=== PATIENT | female | born 1950 | race African-American/Black ===

== ENCOUNTER → 2016-11-01 | Outpatient (CLI) | payer MEDICARE ==
[~2016-11-01] MED LIST: ASPIR 8181 M1 PO; CLARITIN-D 121 EACH PO; CLONAZEPAM0.5 MG; CLONAZEPAM0.5 MG PO; COUMADIN2.5 MG; DICLOFENAC SODI75 MG; DULCOLAX5 MG PO; GABAPENTIN PO; GABAPENTIN300 MG PO; GABAPENTIN400 MG PO; GABAPENTIN600 MG PO; GLUCOTROL5 MG PO; HUMALOG100 UNIT/1; HUMULIN N100 UNIT/2 SC; HUMULIN N100 UNITS/ SC; HUMULIN R100 UNITS/ SC; KADIAN10 MG PO; LIPITOR20 MG; LISINOPRIL20 MG PO; METFORMIN HCL1000 M1; METFORMIN HCL1000 MG PO; MORPHINE SULFAT15 M1 PO; MORPHINE SULFAT20 M1 PO; NEURONTIN300 MG PO; NEURONTIN400 MG PO; NICOTINE PATCH1 EAC2 TD; OXYCODONE HCL10 MG PO; OXYCODONE HCL15 MG PO; PAXIL20 MG PO; PAXIL40 MG PO; PERCOCET 10/1 TABLE1 PO; PRINIVIL20 MG PO; RANITIDINE HCL300 MG PO; STRESS FORMULA1 EAC9 PO; UNSURE OF MEDS; VALIUM10 MG PO; VALIUM5 MG PO; VOLTAREN75 MG PO; ZANTAC300 MG; ZANTAC75 M1; ZESTRIL20 MG PO; ZOCOR40 MG PO; ZOCOR80 MG PO; [UNRECOGNIZED DRUG - REMARK] PO
== END | disposition home or self-care (01) ==
LOC: CDC 11:25
DX: Z01.810 Encounter for preprocedural cardiovascular examination (principal); R94.31 Abnormal electrocardiogram [ECG] [EKG]; M48.06 Spinal stenosis, lumbar region; M19.90 Unspecified osteoarthritis, unspecified site; J44.9 Chronic obstructive pulmonary disease, unspecified; E11.9 Type 2 diabetes mellitus without complications; I10 Essential (primary) hypertension; M79.7 Fibromyalgia; F32.9 Major depressive disorder, single episode, unspecified; Z88.0 Allergy status to penicillin; Z88.1 Allergy status to other antibiotic agents
CPT/HCPCS: 93000

== ENCOUNTER 2016-11-06 10:23 | Day surgery (SDC) | payer OTHER ==
[~2016-11-06] VITALS: Ht 165.1 cm; Wt 68.0 kg
[2016-11-06 11:20] VITALS: BP 178/84
[2016-11-06 12:05] LABS: POINT-OF-CARE METER ID UU14174212
[2016-11-06 15:52] LABS: POINT-OF-CARE METER ID UU13113675
[2016-11-06 18:23] VITALS: BP 189/84
[2016-11-06 19:27] VITALS: BP 180/78
[2016-11-06 23:38] VITALS: BP 192/84
[2016-11-07 03:47] VITALS: BP 174/70
[2016-11-07 05:35] VITALS: BP 170/99
[2016-11-07 08:41] VITALS: BP 172/78
[2016-11-07 14:39] VITALS: BP 173/86
== END 2016-11-07 17:30 | disposition home or self-care (01) ==
LOC: SDC → 2SOUTH 15:15 → 2EASTP 15:15 → 2SOUTH 15:15 → SDC 16:16 → 2EASTP 18:11
PROVIDERS: Neurological Surgery
PROC: 00NY3ZZ Release Lumbar Spinal Cord, Percutaneous Approach (ICD-10-PCS; principal; 2016-11-06)
DX: M43.16 Spondylolisthesis, lumbar region (principal); M47.896 Other spondylosis, lumbar region; M41.9 Scoliosis, unspecified; M48.06 Spinal stenosis, lumbar region; E11.9 Type 2 diabetes mellitus without complications; J44.9 Chronic obstructive pulmonary disease, unspecified; I10 Essential (primary) hypertension; K21.9 Gastro-esophageal reflux disease without esophagitis
CPT/HCPCS: 72020; 76000; 82948; G0378; J0360; J1815; J2250; J2930; J3010; J3370; J3480; S0020

== ENCOUNTER 2016-11-07 22:37 | Emergency (ER) | payer OTHER ==
[~2016-11-07] VITALS: Ht 165.1 cm; Wt 67.5 kg
[2016-11-08 00:47] VITALS: BP 181/92
== END 2016-11-08 01:21 | disposition home or self-care (01) ==
LOC: EME → EDBD 22:37 → EME 11-08 01:21
DX: M54.5 Low back pain (principal); G89.18 Other acute postprocedural pain; Z98.1 Arthrodesis status; E11.9 Type 2 diabetes mellitus without complications; E78.5 Hyperlipidemia, unspecified; Z88.2 Allergy status to sulfonamides; Z88.0 Allergy status to penicillin; Z91.041 Radiographic dye allergy status
CPT/HCPCS: 99281; 99284; J3360